=== PATIENT | male | born 2000 | race Asian ===

== ENCOUNTER 2023-05-15 04:52 | Emergency (ER) | payer OTHER ==
[2023-05-15 05:42] LABS: #Monocytes 1.5 thou/uL (0.11-0.59); #Neutrophils 6.3 thou/uL (1.40-6.50); %Basophils 0.2 % (0.0-1.0); %Eosinophils 0.4 % (0.0-10.0); %Lymphocytes 17.7 % (21.0-51.0); %Monocytes 15.6 % (0.0-10.0); %Neutrophils 65.8 % (42.0-75.0); Hematocrit 46.3 % (42.0-52.0); Hemoglobin 15.8 g/dL (14.0-18.0); Mean Corpuscular HGB CONC 34.1 g/dL (32.0-36.0); Mean Corpuscular Hemoglobin 30.5 pg (27.0-31.0); Mean Corpuscular Volume 89.4 fl (78.0-98.0); Platelet Count 248 10x3/uL (130-400); RBC Distribution Width 11.9 % (11.5-14.5); Red Blood Cell (RBC) Count 5.18 mill/uL (4.70-6.10); White Blood Cell (WBC) Count 9.6 10x3/uL (4.8-10.8)
[2023-05-15 05:57] LABS: Bacteria/HPF None Seen HPF (None Seen); Bilirubin Negative (Negative); Blood, Urine Negative (Negative); CAUTI Indications for Culture Fever or rigors; Clarity Clear (Clear); Glucose, Urine (Dipstick) Normal (Negative); Ketone, Urine Negative (Negative); Leukocyte Negative Leu/uL (Negative); Nitrite Negative (Negative); Protein, Urine (Dipstick) Negative (Neg-Trace); RBC/HPF None Seen HPF (0-3); Specific Gravity, Urine 1.023 (1.002-1.036); Squamous Epithelial 0-3 HPF (0-3); Urobilinogen Normal mg/dL (Less than 2); WBC/HPF 0-3 HPF (0-3)
[2023-05-15 06:02] LABS: Urine Culture Reflex No No
[2023-05-15] MEDS ORDERED: Ibuprofen 800 MG TAB ONE (06:07)
[2023-05-15 06:09] LABS: ALT (SGPT) 42 U/L (8-55); AST (SGOT) 27 U/L (5-34); Albumin 4.5 g/dL (3.5-5.0); Alkaline Phosphatase 84 U/L (40-110); Anion Gap 16 mmol/L (10-20); BUN (Urea Nitrogen) 19 mg/dL (8.9-20.6); Bilirubin, Total 0.3 mg/dL (0.2-1.2); CK (CPK) 87 U/L (30-200); Calc. Creatinine Clearance 0 mL/min (70-130); Calcium 9.4 mg/dL (7.8-10.44); Carbon Dioxide 24 mmol/L (22-29); Chloride 102 mmol/L (98-107); Estimated GFR 126; Globulin 3.7 g/dL (2.4-3.5); Glucose 104 mg/dL (70-105); Lipase 14 U/L (8-78); Magnesium 2.2 mg/dL (1.6-2.6); Protein, Total 8.2 g/dL (6.0-8.3); Sodium 138 mmol/L (136-145)
[2023-05-15 06:16] LABS: Troponin I Less than 0.010 ng/mL (< 0.028)
[2023-05-15 06:20] LABS: SARS-CoV-2 NAA Rapid Test Not Detected (NotDetected)
== END 2023-05-15 08:16 | disposition home or self-care (01) ==
LOC: ERS 04:52
DX: B34.9 Viral infection, unspecified (principal); Z20.822 Contact with and (suspected) exposure to COVID-19
CPT/HCPCS: 36415; 71045; 80053; 81001; 82550; 83690; 83735; 84484; 85025; 85379; 93005